=== PATIENT | male | born 1930 | race Caucasian/White ===

== ENCOUNTER → 2017-01-10 | Day surgery (SDC) | payer MEDICARE, BC ==
[~2017-01-10] MED LIST: ACETAMINOPHEN/HYDROcodone 325 MG/5 MG TAB ONE; ASPI81TA82 PO; BUPIVACAINE/EPINEPHRINE 0.5% PF 30 ML VIAL ONE; GABA300C3 PO; LACTATED RINGER'S 1000 ML INJ 1,000 ML ONE; LIPI10TA PO; LISI-360 PO; NIFE1TAB85 PO; ONDANSETRON HCL 4 MG/2 ML VIAL IV PUSH ONE; PROM1SUP12 PR; PROPOFOL 200 MG/20 ML AMP IV ONE; ZOFR4TAB3 SL; ceFAZolin INJ 1,000 MG VIAL ONE
--- NOTE | 2017-01-12 13:39 | MP ---
cc: NORY BAIN DATE OF SURGERY: 01/10/2017 PREOPERATIVE DIAGNOSIS: Right knee medial meniscus tear. POSTOPERATIVE DIAGNOSIS: Right knee medial meniscus tear. OPERATION: Right knee arthroscopic partial medial mastectomy. SURGEON: Nory Bain MD. ANESTHESIA: General. ESTIMATED BLOOD LOSS: Less then 10 cc. TOURNIQUET TIME: Zero. INDICATIONS FOR PROCEDURE: None. JUSTIFICATION: The patient 86-year male who injured the right knee had persistent pain regards to his condition failed conservative treatment. Clinical exam as well as MRI confirmed the above-named findings counseled as and alternatives of named surgical procedures, he did rodriguez to proceed with surgery. A written consent obtained. The patient identified by name, taken to the supine on the general anesthesia was administered as well as 1 gram of IV Ancef. Right thigh carefully placed in well-padded leg calabrese right lower extremity prepped draped using Isoproyl alcohol, Hibiclens solution and DuraPrep solution. Standard medial and lateral parapatellar arthroscope portal established. 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 A arthroscopic basket forceps as well as shaver was introduced in the medial compartment to perform partial meniscectomy meniscal rim was probed and stable within the intercondylar notch, revealed the anterior posterior cruciate ligaments intact lateral compartment was free of meniscal pathology and chondromalacia. At the conclusion of the surgical procedure 30 cc of 0.50% Marcaine with epinephrine was injected into the knee joint. The portals were closed 3-0 Prolene suture. Sterile dressing applied. The patient on procedure with no intraoperative noted. MD JOANNA Davila/gelacio /4:02 PM /1:23 PM
== END | disposition home or self-care (01) ==
LOC: ESDC 14:08
PROVIDERS: ATTEND Orthopaedic Surgery Sports Medicine
DX: S83.231A Complex tear of medial meniscus, current injury, right knee, initial encounter (principal)
CPT/HCPCS: 01400; 29881; J0690; J2405; J3010; J7120